=== PATIENT | male | born 1940 | race Caucasian/White ===

== ENCOUNTER 2017-05-15 16:38 | Day surgery (SDC) | payer MEDICARE ==
[~2017-05-15] VITALS: Ht 188 cm; Wt 88.5 kg
--- NOTE | ~2017-05-15 | OP ---
PATIENT NAME: JOSE NICOLE MEDICAL RECORD: [id number] :42 LOCATION:D.OPS ADMISSION DATE: SURGEON: TOMI ESPARZA MD DATE OF OPERATION: 05/16/2017 PREOPERATIVE DIAGNOSES: 1. Acute appendicitis with localized peritonitis. 2. Hepatitis C. 3. Thrombocytopenia. POSTOPERATIVE DIAGNOSES: 1. Acute appendicitis with localized peritonitis. 2. Hepatitis C. 3. Thrombocytopenia. PROCEDURE: Laparoscopic appendectomy. SURGEON: Tomi Esparza MD REPORT OF PROCEDURE: The patient's abdomen was prepped and draped in sterile fashion. A cutdown was made on the superior aspect of the umbilicus, 0 Vicryls were placed in the fascia bilaterally and the fascia was incised with 15-blade. I then bluntly entered the peritoneal cavity and placed a 12-mm Prince port. Under direct visualization, a 5 mm trocar was placed in the left lower quadrant and another was placed in the suprapubic region. The appendix was visualized, lying on top of the cecum and lateral. This appendix appeared to be gangrenous from its tip all the way down to its base. The mesoappendix at the base of the appendix was opened up and a 45 blue load Endo-YARA stapler was used to transect the base of the appendix near the cecum. The mesoappendix was then transected using a 45 white load Endo-YARA stapler. We saw there was a little bit of pulsatile bleeding. This was treated with electrocautery and discontinued any bleeding. The appendix was placed into an Endo Catch bag. We then irrigated out the right lower quadrant and pelvis. The ports and insufflation were then removed and the appendix was taken out through the umbilicus. The umbilical fascia was closed with interrupted 0 Vicryls times 3. The wounds were then irrigated out with normal saline, infused with 10 mL of 0.25% Marcaine with epinephrine. The skin incisions were all closed with subcutaneous 5-0 Monocryl and dressed appropriately. COMPLICATIONS: None. CONDITION: Stable. ANESTHESIA: General endotracheal and local. BLOOD LOSS: Minimal. 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
[2017-05-15 17:05] LABS: BASOPHILS 0.1 % (0-2); EOSINOPHILS 0.1 % (0-7); HEMATOCRIT 37.1 % (42.0-54.0); HEMOGLOBIN 12.9 g/dL (13.5-17.5); IMMATURE GRANULOCYTES 0.2 % (0-5); LYMPHOCYTES 3.3 % (15-50); MCH 28.8 pg (26.0-34.0); MCHC 34.8 g/dL (31.0-37.0); MCV 82.8 fL (80.0-100.0); MEAN PLATELET VOLUME 10.5 fL (7.4-10.4); MONOCYTES 14.3 % (2-11); RBC 4.48 10x6/uL (4.20-6.10); RDW 13.2 % (11.5-14.5); WBC 12.9 10x3/uL (4.8-10.8)
[2017-05-15 17:20] LABS: ALBUMIN 3.1 g/dL (3.4-5.0); ANION GAP 15.4 mmol/L (8-16); BILIRUBIN - TOTAL 1.91 mg/dL (0.2-1.3); CALCIUM 8.1 mg/dL (8.5-10.1); CARBON DIOXIDE 21.6 mmol/L (21.0-32.0); CREATININE - SERUM 1.6 mg/dL (0.6-1.3); PROTEIN - SERUM 6.1 g/dL (6.4-8.2)
[2017-05-15 17:45] LABS: PLATELET COUNT 41 10x3/uL (130-400)
[2017-05-16 00:33] VITALS: BP 162/65; BMI 25.1
[2017-05-16 02:34] LABS: APPEARANCE CLEAR (CLEAR); BILIRUBIN NEGATIVE (NEGATIVE); COLOR YELLOW (YELLOW); GLUCOSE NEGATIVE (NEGATIVE); KETONE NEGATIVE (NEGATIVE); NITRITE NEGATIVE (NEGATIVE); PROTEIN NEGATIVE (NEGATIVE); SPECIFIC GRAVITY 1.015 (1.005-1.020); UROBILINOGEN NORMAL (NORMAL)
[2017-05-16 04:00] VITALS: BP 125/59
[2017-05-16 06:30] LABS: BASOPHILS 0.1 % (0-2); EOSINOPHILS 0.4 % (0-7); HEMATOCRIT 36.6 % (42.0-54.0); HEMOGLOBIN 12.4 g/dL (13.5-17.5); IMMATURE GRANULOCYTES 0.2 % (0-5); MCH 28.8 pg (26.0-34.0); MCHC 33.9 g/dL (31.0-37.0); MONOCYTES 13.1 % (2-11); NEUTROPHILS 74.2 % (40-80); RDW 13.8 % (11.5-14.5)
[2017-05-16 06:33] LABS: MCV 85.1 fL (80.0-100.0); PLATELET COUNT 42 10x3/uL (130-400); WBC 8.4 10x3/uL (4.8-10.8)
[2017-05-16 06:41] LABS: ANION GAP 10.2 mmol/L (8-16); CALCIUM 8.5 mg/dL (8.5-10.1); CARBON DIOXIDE 26.5 mmol/L (21.0-32.0); CREATININE - SERUM 1.6 mg/dL (0.6-1.3)
[2017-05-16 06:48] LABS: POTASSIUM - SERUM 4.7 mmol/L (3.5-5.1)
[2017-05-16 07:16] LABS: APTT 30.4 SECONDS (22.8-39.4); INR 1.26 (0.85-1.17); PROTIME 15.4 SECONDS (11.6-15.0)
[2017-05-16 08:06] VITALS: BP 151/72
[2017-05-16 11:42] VITALS: BP 139/60
[2017-05-16 12:10] VITALS: Ht 188 cm; Wt 88.5 kg
[2017-05-16 17:48] VITALS: BP 156/68
[2017-05-16 22:06] VITALS: BP 131/59
[2017-05-17 05:03] VITALS: BP 149/75
[2017-05-17 05:04] LABS: BASOPHILS 0 % (0-2); EOSINOPHILS 0 % (0-7); HEMATOCRIT 37.2 % (42.0-54.0); HEMOGLOBIN 12.3 g/dL (13.5-17.5); IMMATURE GRANULOCYTES 0.2 % (0-5); LYMPHOCYTES 4.4 % (15-50); MCH 28.6 pg (26.0-34.0); MCHC 33.1 g/dL (31.0-37.0); MCV 86.5 fL (80.0-100.0); MEAN PLATELET VOLUME 10.9 fL (7.4-10.4); MONOCYTES 8.1 % (2-11); NEUTROPHILS 87.3 % (40-80); RDW 13.9 % (11.5-14.5); WBC 9.8 10x3/uL (4.8-10.8)
[2017-05-17 05:12] LABS: PLATELET COUNT 55 10x3/uL (130-400)
[2017-05-17 05:25] LABS: ANION GAP 14.3 mmol/L (8-16); CALCIUM 7.9 mg/dL (8.5-10.1); CARBON DIOXIDE 21.4 mmol/L (21.0-32.0); CREATININE - SERUM 1.6 mg/dL (0.6-1.3); POTASSIUM - SERUM 4.7 mmol/L (3.5-5.1)
[2017-05-17 09:22] VITALS: BP 138/65
[2017-05-17 12:44] VITALS: BP 160/82
[2017-05-17] MEDS ORDERED: HYDROCODONE-APA1 TAB PO (13:13)
[2017-05-17 16:36] VITALS: BP 130/67
== END 2017-05-17 18:13 | disposition home or self-care (01) ==
LOC: OBSVTIME → D.OPS 16:38 → D.ER 16:38 → D.MS 19:36 → D.ER 19:36 → D.EDHOLD 19:36 → D.MS 20:07 → OBSVTIME 05-16 08:00 → EDSTATUS 05-16 12:00 → D.OPS 05-17 18:13 → D.MS 05-17 18:13
PROVIDERS: Family Medicine; Surgery
DX: K35.3 Acute appendicitis with localized peritonitis (principal); B19.20 Unspecified viral hepatitis C without hepatic coma; D69.6 Thrombocytopenia, unspecified; Z01.812 Encounter for preprocedural laboratory examination